=== PATIENT | female | born 1985 | race Caucasian/White ===

== ENCOUNTER → 2021-08-06 10:12 | Outpatient (CLI) | payer OTHER, SELFPAY ==
[2021-08-06 10:53] LABS: Add Manual Diff / Slide Review NO; Basophils Absolute Auto 0 /uL (0-100); Basophils Percent Auto 0.6 % (0-2); Eosinophils Absolute Auto 200 /uL (0-450); Eosinophils Percent Auto 2.6 % (2-4); Hematocrit 40.3 % (36-46); Hemoglobin 13.8 g/dL (12.0-16.0); Lymphocytes Absolute Auto 1900 /uL (1100-4500); Lymphocytes Percent Auto 30.3 % (25-40); Mean Corpuscular HGB Conc 34.2 % (30-36); Mean Corpuscular Hemoglobin 29.9 PG (26-34); Mean Corpuscular Volume 87.4 fL (80-100); Monocytes Absolute Auto 400 /uL (0-900); Neutrophils Absolute Auto 3800 /uL (1500-7000); Neutrophils Percent Auto 59.5 % (50-75); Platelet Count 261 X10^3/uL (150-400); Red Blood Cell Count 4.61 X10^6/uL (4.0-5.2); Red Cell Distribution Width 13.3 % (11.6-14.8); White Blood Cell Count 6.4 X10^3/uL (4.5-11.0)
[2021-08-06 11:07] LABS: Alanine Aminotransferase 14 IU/L (<35); Albumin 4.5 g/dL (3.5-5.0); Albumin Globulin Ratio 1.5 (1.0-2.8); Alkaline Phosphatase 85 U/L (38-126); Aspartate Aminotransferase 22 IU/L (14-36); BUN Creatinine Ratio 9.6 (6-22); Bilirubin Total 0.6 mg/dL (0.2-1.3); Blood Urea Nitrogen 7 mg/dL (7-17); Calcium 9.2 mg/dL (8.4-10.2); Carbon Dioxide 27 mmol/L (22-32); Chloride 104 mmol/L (98-107); Cholesterol 160 mg/dL (140-199); Estimated Glomerular Filt Rate > 60 mL/min (>60); Glucose 93 mg/dL (70-100); HDL Cholesterol 66 mg/dL (40-60); HEMOLYSIS < 15 (0-50); LDL Cholesterol Calculated 76 mg/dL (<100); Sodium 137 mmol/L (137-145); Total Protein 7.5 g/dL (6.3-8.2); Triglycerides 88 mg/dL (35-150)
[2021-08-06 11:18] LABS: HEMOLYSIS < 15 (0-50); Iron 95 ug/dL (37-170)
[2021-08-06 11:27] LABS: Vitamin D 25 Hydroxy (D3) 60.5 ng/mL (30.0-100.0)
[2021-08-06 11:30] LABS: Percent Iron Saturation 37 % (15-50); Total Iron Binding Capacity 256 ug/dL (265-497); Transferrin 209 mg/dL (206-381)
[2021-08-06 11:40] LABS: Ferritin 57 ng/mL (6-137)
[2021-08-06 11:48] LABS: TSH w/ Reflex to FT4 2.84 uIU/mL (0.47-4.68)
[2021-08-06 12:11] LABS: Folate 19.7 ng/mL (2.76-20.0); Vitamin B12 878 pg/mL (239-931)
== END ==
PROVIDERS: PCP Family Medicine; Referring Provider Family Medicine; Visit Provider Family Medicine
DX: F41.8 Other specified anxiety disorders (principal); Z90.3 Acquired absence of stomach [part of]
CPT/HCPCS: 36415; 80053; 80061; 82306; 82607; 82728; 82746; 83036; 83540; 83550; 84443; 85025

== ENCOUNTER → 2021-11-26 06:59 | Outpatient (CLI) | payer OTHER, SELFPAY ==
--- NOTE | 2021-11-26 07:00 | DI.US.S_ITS ---
PROCEDURE: US PELVIC COMPLETE INDICATIONS: RIGHT PELVIC PAIN TECHNIQUE: Real-time scanning was performed of the pelvic organs, with image documentation. Additional endovaginal scanning was necessary due to incomplete visualization of the adnexal and endometrial structures by transabdominal scanning. COMPARISON: None. FINDINGS: Uterus: Uterus is anteverted and normal in size at 8 x 6 x 4.5 cm. The uterus demonstrates an arcuate configuration. The myometrium is homogeneous. The endometrium measures 8 mm combined thickness. There is a 2 cm subserosal fibroid seen on the right anteriorly. Ovaries: The right ovary measures 2.1 x 3.1 x 1.5 cm, with a calculated ovarian volume of 7.5 cc. The left ovary measures 4.1 x 3.4 x 1.8 cm, with a calculated ovarian volume of 13.5 cc. Adjacent to the right ovary, there is a thick-walled cyst with mildly increased surrounding vascularity that measures 2.6 x 2.5 x 2.7 cm. Within the left ovary, there is a likely hemorrhagic cyst with peripheral vascularity that measures 2.2 x 2.3 x 1.2 cm. More than 12 follicles can be seen in each ovary. Other: No pathologic free abdominal or pelvic fluid. IMPRESSION: Within the right adnexal region, there is a cystic lesion with mild surrounding increased vascularity. Please correlate with status. A likely hemorrhagic cyst can be seen involving the left ovary. If it would be clinically appropriate, a followup pelvic ultrasound could be considered in 6 weeks to assure resolution/ improvement. There is a 2 cm subserosal fibroid seen on the right anteriorly. Arcuate uterus configuration noted. We strive to produce accurate, complete, and clear reports of imaging services. To assist us in improving patient care, this report was composed using standard report templates and voice recognition software. Therefore, it may contain abnormal punctuation, insertions and/or omissions. Occasional wrong-word or sound-alike substitutions may occur. Though we review the report and make efforts to correct it, we do recommend that the report be read carefully in proper context to recognize any text inaccuracies. Dictated by: Campbell Damico M.D. on 11/26/2021 at 11:51 Approved by: Campbell Damico M.D. on 11/26/2021 at 11:57
== END ==
PROVIDERS: PCP Family Medicine; Referring Provider Obstetrics & Gynecology; Visit Provider Obstetrics & Gynecology
DX: D25.2 Subserosal leiomyoma of uterus (principal); N83.202 Unspecified ovarian cyst, left side; R10.9 Unspecified abdominal pain; Q51.810 Arcuate uterus; N94.9 Unspecified condition associated with female genital organs and menstrual cycle
CPT/HCPCS: 76830; 76856

== ENCOUNTER → 2022-01-21 15:01 | Outpatient (CLI) | payer OTHER, SELFPAY ==
[2022-01-21 15:43] LABS: COVID19 -Nasal RAPID Negative (Negative)
== END ==
PROVIDERS: PCP Family Medicine; Visit Provider Obstetrics & Gynecology
DX: Z01.812 Encounter for preprocedural laboratory examination (principal); Z20.822 Contact with and (suspected) exposure to COVID-19
CPT/HCPCS: 87635

== ENCOUNTER 2022-01-24 08:15 | Day surgery (SDC) | payer OTHER, SELFPAY ==
[2022-01-20 15:25] VITALS: BMI 30.5
[2022-01-24] VITALS (12 sets, daily range): BP systolic 105–129; BP diastolic 58–85; PULSE 66–93; RESP 12–19; TEMP 36.3–36.9; O2SAT 97–100; BMI 26.5
--- NOTE | 2022-01-24 | PATH_ITS ---
[facility] Accession Number: [id number] . 01 Material submitted: . PART A: fallopian tube - RIGHT PARATUBAL CYST PART B: fallopian tube - LEFT PARATUBAL CYST PART C: small intestine - SMALL INTESTINE MASS . 01 Diagnosis: A. Right Paratubal Cyst, Biopsy: Endometriosis involving fragment of fallopian tube mucosa. No evidence of malignancy. . B. Left Paratubal Cyst, Biopsy: Endometriosis involving fragment of fallopian tube mucosa. No evidence of malignancy. . C. Small Intestine, Mass, Biopsy: Dense fibrous tissue with non-specific microcalcifications. No evidence of endometriosis or neoplasm. [facility] 01/27/2022 1738 Local . 01 Electronically signed: . Kelly Smith MD, Pathologist NPI- [id number] . 01 Gross description: . Part A: RIGHT PARATUBAL CYST: Received in formalin is 1 fragment of zhang soft tissue measuring 2.5 x 1.0 x 0.5 cm. Tissue is inked. Specimen is sectioned and submitted in its entirety in 2 cassettes. Part B: LEFT PARATUBAL CYST: Received in formalin is 1 fragment of zhang soft tissue measuring 0.8 x 0. 7 x 0.2 cm. Tissue is inked. Specimen is sectioned and submitted in its entirety in 1 cassette. Part C: SMALL INTESTINE MASS: Received in formalin is 1 fragment(s) of zhang, soft tissue measuring 1.0 x 0.7 x 0.1 cm which is inked, trisected and submitted entirely in 1 cassette(s) /CPE 01/25/2022 0914 Local . 01 Microscopic: . Immunohistochemical stains were performed in order to characterize cells of interest. The control stains showed appropriate reactivity. . Block A CD10: Positive in cells of interest. . Block C CD10: Negative PAX8: Negative . Interpretation. A. The combined morphologic appearance and expression of CD10 is consistent with endometriosis. . C. No morphologic or immunohistologic evidence of endometriosis. . * This test was developed and its performance characteristics determined by [employer]. It has not been cleared or approved by the U.S. Food and Drug Administration. The FDA has determined that such clearance or approval is not necessary. This test is used for clinical purposes. It should not be regarded as investigational or for research. . 01 Pathologist provided ICD-10: N80.209 . 01 CPT . 081496, 335426, 961094, B50051, V46833 Specimen Comment: A courtesy copy of this report has been sent to [phone] Performed at: 01 [facility] [address] [place] [address], [place], [place] [id number] MD Martínez Menjivar MD Phone: [phone]
[2022-01-24] MEDS: LACTATED RINGERS 1,000 ML 100 ML IV ×2 (09:04→13:14)
--- NOTE | 2022-01-24 09:52 | PM.HP.1 ---
History of Present Illness History of Present Illness Date Patient Seen: 01/24/22 Time Patient Seen: 09:52 Chief complaint: [facility] Narrative: Patient is a 36-year-old 0 with a right adnexal cyst, dysmenorrhea, possible endometriosis. She presents for a laparoscopic removal of the right ovarian cyst, chromotubation, possible lysis of adhesions, and possible fulguration of endometriosis. Patient History Medical History (Updated 01/07/22 @ 13:01 by Nereida Robledo MD) Depression Surgical History (Updated 01/20/22 @ 15:28 by Patti Castle RN) H/O gastric sleeve (10/2020) Family & Social History Social History: household members spouse Tobacco & Substance use: Smoking Status Never smoker alcohol intake current alcohol intake frequency a few times a week Substance Use Type marijuana Meds Home Medications and Allergies Home Medications Medication Instructions Recorded Confirmed Type hydroxyzine HCl 25 mg tablet 25 mg PO BID PRN anxiety #30 tabs 08/06/21 01/20/22 Rx tretinoin 0.025 % topical cream 1 applic topical BEDTIME 08/06/21 01/20/22 History triamcinolone acetonide 0.025 % 1 applic topical DAILY 08/06/21 01/20/22 History topical cream Allergies Allergy/AdvReac Type Severity Reaction Status Date / Time No Known Drug Allergies Allergy Verified 01/24/22 08:36 Exam Vital Signs (past 8 hours): - 01/24/22 08:38 Temperature 97.7 F Pulse Rate 66 Respiratory Rate 16 Blood Pressure 129/85 Pulse Oximetry 100 Oxygen Delivery Method Room Air Oxygen Delivery Method Room Air Narrative Exam Narrative: HEENT: No thyromegaly, no anterior cervical or supraclavicular lymphadenopathy. Lungs:Clear to auscultation bilaterally, no wheezes. Cardiovascular: Regular rate and rhythm, no murmurs, rubs, or gallops. Abdomen: Well-healed scars. No hepatosplenomegaly. No masses palpable. External genitalia: Normal Vagina: Normal Cervix: Normal Bimanual exam: 7 Week size uterus. Mobile. Extremities: No edema Assessment & Plan Assessment & Plan narrative: Assessment: 36-year-old 0 with a right ovarian cyst, dysmenorrhea, and possible adhesions Plan: Laparoscopic removal of right ovarian cyst, possible lysis of adhesions, chromotubation, and possible fulguration of endometriosis The risks, benefits, and alternatives to the procedure were explained to the patient. The risks including bleeding, infection, uterine perforation, injury to the bowel, bladder, or ureters. She understands these risks and agrees to proceed. A full par Q was held and consent form was signed. COVID-19 COVID-19 status: Negative Result date/Date tested (Pos, Neg/Pending): 01/21/22 Time Spent With Patient Time with patient: less than 30 minutes Critical Care time: I spent a total of [] minutes of critical care time on this patient's care today; this time is exclusive of procedural time.
--- NOTE | 2022-01-24 09:54 | PM.PREOP ---
Pre-operative Note COVID-19 COVID-19 status: Negative Result date/Date tested (Pos, Neg/Pending): 01/24/22 Criteria for continued procedure: Non-surgical alternatives not available or appropriate per current SOC Interval Note History & Physical reviewed/Exam performed by Physician: Yes Changes to H&P: No H&P completed within 30 days and has changed as indicated here:: 01/24/22
--- NOTE | 2022-01-24 10:44 | SUR.OPER ---
Lithotomy on padded OR bed, head on pillow, arms secured on padded arm boards at <90 degrees abductio. Legs secured in padded yellow fins stirrups.
--- NOTE | 2022-01-24 10:44 | SUR.OPER ---
Lithotomy on padded OR bed, head on pillow, arms padded with gel pads and tucked against body, fingers free and straight. Legs secured in padded yellow fins stirrups.
[2022-01-24] MEDS: METHYLENE BLUE 50 MG/10 ML VIAL INJ (10:52)
[2022-01-24] MEDS: BUPIVACAINE 0.5% (PF) 30 ML, EPINEPHrine 0.15 MG INJ (10:59)
[2022-01-24] MEDS: HYDROMORPHONE 2 MG INJ IV (11:58)
--- NOTE | 2022-01-24 12:02 | SUR.PHASEI ---
Report given to Thiago
[2022-01-24] MEDS: OXYCODONE IR 5 MG TABLET PO (12:15)
--- NOTE | 2022-01-24 12:18 | P.OP_ITS ---
Operative Date/Time/Diagnoses Date of procedure: 01/24/22 Time of procedure: 12:18 Pre-op diagnosis: Dysmenorrhea Right ovarian cyst Arcuate uterus Post-op diagnosis: same Procedure & Clinicians Procedure: Procedures Operation Date: 01/24/22 09:45 Actual Procedure Side Surgeon p Diagnostic Laparoscopy, removal of right adnexal cyst, removal left adnexal c yst, fulguration of endometriosis, biopsy small intestine mass, hysteroscopy Nereida Robledo MD Indications: Dysmenorrhea Right ovarian cyst Surgeon: Nereida Robledo Anesthesia Type: General and Local Operative Notes Findings: 7 week size arcuate uterus Normal liver and gallbladder Appendix previously removed ?White tissue? attached to the mesentery of the small bowel Bilateral paratubal cysts Endometriosis of the anterior cul-de-sac and left posterior cul-de-sac No septum in the uterus Bilateral fallopian tube ostia observed Closure Type: primary Specimen(s): other (Bilateral paratubal cysts, white tissue and attached to the small bowel mesentery) Estimated blood loss (mL): 10 Blood products transfused: none Procedure in detail: After informed consent was obtained, the patient was taken to the operating room where she was placed in the dorsal supine position. After adequate general endotracheal anesthesia was achieved, she was placed in the dorsal lithotomy position, and prepped and draped in the usual sterile fashion. A time-out was performed. A bivalve speculum was placed into the vagina and the anterior lip of the cervix was grasped with a single-tooth tenaculum. The cervical os was sequentially dilated until the Zumi uterine manipulator could pass easily into the endometrial cavity. Single-tooth tenaculum was removed from the anterior lip of the cervix. The bivalve speculum was removed the vagina. Attention was then turned to the abdomen where 6 cc of 0.5% Marcaine with epinephrine were injected in the umbilical fold. A 5 mm incision was made. The Veress needle was placed into the peritoneal cavity, and its placement confirmed by aspiration and drop test. The abdominal cavity was insufflated with 3.2 L of CO2. The Veress needle was removed, and a 5 mm trocar was placed without difficulty. Two other incisions were made 4 cm lateral to the midline at the level of the umbilicus after 6 cc of 0.5% Marcaine with epinephrine were injected and two 5 mm trocars were placed under direct visualization. The paratubal cyst on the ri ght side was grasped with an atraumatic grasper. Using the power seal, the attachment was cauterized and cut with care not to touch the tube. This was pulled through the left upper trocar. This was repeated on the paratubal cyst on the left ovary. That was pulled through the right trocar. The spoon cautery was then used to cauterize endometriotic lesions in the anterior and posterior cul-de-sacs. There were approximately 50 lesions. While looking at the appendix, there was a white mass coming from the mesentery. A small piece was excised and sent to pathology. Hemostasis was achieved. The pelvis was copiously irrigated with warm normal saline. The instruments were removed from the abdomen. The CO2 was allowed to escape. The trocars were removed. The incisions were repaired with 4-0 Monocryl in a subcuticular fashion. Steri- Strips and Allevyn dressings were placed. The Zumi uterine manipulator was removed from the uterus. Sponge, lap, and instrument counts were correct x2. The patient tolerated the procedure well, and was taken to PACU in stable condition. Complications: none Post-operative Condition: stable Disposition: PACU Plan for aftercare: Home after recovery
[2022-01-24] MEDS: SCOPOLAMINE 1 PATCH TOP (12:55)
--- NOTE | 2022-01-24 13:10 | SUR.PHASEII ---
c/o nausea - medicated with scopalamine patch VSS
--- NOTE | 2022-01-24 13:50 | SUR.PHASEII ---
Notified Rolanda Wilson CRNA of patient continued nausea after IVF and with more than 30min [address] [place] [address] and hx of car sickness and PONV.
[2022-01-24] MEDS: HALOPERIDOL 5 MG/ML VIAL 1 MG IV (14:34)
--- NOTE | 2022-01-24 14:36 | SUR.PHASEII ---
continuing to feel nausea - new order for haldol received. Awaiting ride.
== END 2022-01-24 14:55 | disposition home or self-care (01) ==
PROVIDERS: PCP Family Medicine; Referring Provider Obstetrics & Gynecology; Visit Provider Obstetrics & Gynecology
PROC: (CPT 58662; principal; 2022-01-24 09:45)
DX: N80.203 Endometriosis of bilateral fallopian tubes, unspecified depth (principal); N80.329 Endometriosis of the posterior cul-de-sac, unspecified depth; Q51.810 Arcuate uterus; N80.319 Endometriosis of the anterior cul-de-sac, unspecified depth
CPT/HCPCS: 58662; 81025; J0171; J1100; J1170; J1630; J1885; J2405; J2704; J3010; Q9968

== ENCOUNTER → 2022-02-15 08:34 | Outpatient (CLI) | payer OTHER, SELFPAY ==
[2022-02-15 09:05] LABS: Add Manual Diff / Slide Review NO; Basophils Absolute Auto 0 /uL (0-100); Basophils Percent Auto 0.3 % (0-2); Eosinophils Absolute Auto 100 /uL (0-450); Eosinophils Percent Auto 2.7 % (2-4); Hematocrit 40.4 % (36-46); Hemoglobin 13.7 g/dL (12.0-16.0); Lymphocytes Absolute Auto 1700 /uL (1100-4500); Lymphocytes Percent Auto 36.3 % (25-40); Mean Corpuscular Hemoglobin 30.1 PG (26-34); Mean Corpuscular Volume 88.7 fL (80-100); Monocytes Absolute Auto 400 /uL (0-900); Monocytes Percent Auto 8.3 % (3-14); Neutrophils Absolute Auto 2500 /uL (1500-7000); Neutrophils Percent Auto 52.4 % (50-75); Platelet Count 224 X10^3/uL (150-400); Red Blood Cell Count 4.55 X10^6/uL (4.0-5.2); Red Cell Distribution Width 12.8 % (11.6-14.8); White Blood Cell Count 4.7 X10^3/uL (4.5-11.0)
[2022-02-15 09:16] LABS: Hemoglobin A1C% w Est Avg Glu 4.8 % (4.0-6.0)
[2022-02-15 09:24] LABS: Iron 186 ug/dL (37-170)
[2022-02-15 09:26] LABS: Alanine Aminotransferase 14 IU/L (<35); Albumin 4.1 g/dL (3.5-5.0); Albumin Globulin Ratio 1.4 (1.0-2.8); Alkaline Phosphatase 54 U/L (38-126); Aspartate Aminotransferase 19 IU/L (14-36); BUN Creatinine Ratio 22.8 (6-22); Blood Urea Nitrogen 13 mg/dL (7-17); Calcium 8.6 mg/dL (8.4-10.2); Carbon Dioxide 25 mmol/L (22-32); Chloride 102 mmol/L (98-107); Cholesterol 163 mg/dL (140-199); Estimated Glomerular Filt Rate > 60 mL/min (>60); Globulin 2.9 g/dL (1.7-4.1); Glucose 90 mg/dL (70-100); HDL Cholesterol 74 mg/dL (40-60); HEMOLYSIS < 15 (0-50); LDL Cholesterol Calculated 74 mg/dL (<100); Potassium 3.8 mmol/L (3.4-5.1); Sodium 136 mmol/L (137-145); Triglycerides 75 mg/dL (35-150)
[2022-02-15 09:33] LABS: Total Iron Binding Capacity 250 ug/dL (265-497)
[2022-02-15 09:34] LABS: Percent Iron Saturation 74 % (15-50)
[2022-02-15 09:41] LABS: Vitamin D 25 Hydroxy (D3) 56.1 ng/mL (30.0-100.0)
[2022-02-15 09:55] LABS: Thyroid Stimulating Hormone 2.21 uIU/mL (0.47-4.68)
[2022-02-15 09:59] LABS: Ferritin 58 ng/mL (6-137)
[2022-02-15 10:30] LABS: Folate 14.3 ng/mL (2.76-20.0); Vitamin B12 618 pg/mL (239-931)
[2022-02-18 17:01] LABS: Vitamin B1 167.6 nmol/L (66.5-200.0)
== END ==
PROVIDERS: PCP Family Medicine; Referring Provider Surgery; Visit Provider Surgery
DX: E63.9 Nutritional deficiency, unspecified (principal); K90.9 Intestinal malabsorption, unspecified; Z98.84 Bariatric surgery status
CPT/HCPCS: 36415; 80053; 80061; 82306; 82607; 82728; 82746; 83036; 83540; 83550; 84425; 84443; 85025

== ENCOUNTER → 2023-03-03 08:38 | Outpatient (CLI) | payer OTHER, SELFPAY ==
[2023-03-03 10:06] LABS: Hemoglobin A1C% w Est Avg Glu 4.8 % (4.0-6.0)
[2023-03-03 10:18] LABS: Add Manual Diff / Slide Review NO; Basophils Absolute Auto 0 /uL (0-100); Basophils Percent Auto 0.6 % (0-2); Eosinophils Absolute Auto 200 /uL (0-450); Eosinophils Percent Auto 3.3 % (2-4); Hematocrit 40.6 % (36-46); Hemoglobin 13.9 g/dL (12.0-16.0); Lymphocytes Absolute Auto 1900 /uL (1100-4500); Lymphocytes Percent Auto 41.1 % (25-40); Mean Corpuscular HGB Conc 34.3 % (30-36); Mean Corpuscular Hemoglobin 29.8 PG (26-34); Mean Corpuscular Volume 86.9 fL (80-100); Monocytes Absolute Auto 300 /uL (0-900); Monocytes Percent Auto 6.8 % (3-14); Neutrophils Absolute Auto 2300 /uL (1500-7000); Neutrophils Percent Auto 48.2 % (50-75); Platelet Count 226 X10^3/uL (150-400); Red Blood Cell Count 4.67 X10^6/uL (4.0-5.2); Red Cell Distribution Width 12.8 % (11.6-14.8); White Blood Cell Count 4.7 X10^3/uL (4.5-11.0)
[2023-03-03 10:31] LABS: Iron 150 ug/dL (37-170)
[2023-03-03 10:36] LABS: Alanine Aminotransferase 13 IU/L (<35); Albumin 4.1 g/dL (3.5-5.0); Albumin Globulin Ratio 1.5 (1.0-2.8); Alkaline Phosphatase 43 U/L (38-126); Aspartate Aminotransferase 20 IU/L (14-36); BUN Creatinine Ratio 21.9 (6-22); Bilirubin Total 0.8 mg/dL (0.2-1.3); Blood Urea Nitrogen 14 mg/dL (7-17); Calcium 9.5 mg/dL (8.4-10.2); Carbon Dioxide 27 mmol/L (22-32); Chloride 102 mmol/L (98-107); Cholesterol 155 mg/dL (140-199); Estimated Glomerular Filt Rate > 60 mL/min (>60); Globulin 2.7 g/dL (1.7-4.1); Glucose 82 mg/dL (70-100); HDL Cholesterol 71 mg/dL (40-60); HEMOLYSIS < 15 (0-50); LDL Cholesterol Calculated 73 mg/dL (<100); Potassium 4.2 mmol/L (3.4-5.1); Sodium 135 mmol/L (137-145); Total Protein 6.8 g/dL (6.3-8.2); Triglycerides 55 mg/dL (35-150)
[2023-03-03 10:44] LABS: Percent Iron Saturation 55 % (15-50); Total Iron Binding Capacity 271 ug/dL (265-497)
[2023-03-03 10:50] LABS: Vitamin D 25 Hydroxy (D3) 55.2 ng/mL (30.0-100.0)
[2023-03-03 11:09] LABS: Thyroid Stimulating Hormone 2.09 uIU/mL (0.47-4.68)
[2023-03-03 11:13] LABS: Ferritin 44 ng/mL (6-137)
[2023-03-03 11:45] LABS: Folate 13.2 ng/mL (2.76-20.0); Vitamin B12 764 pg/mL (239-931)
[2023-03-07 11:27] LABS: Vitamin B1 91.8 nmol/L (66.5-200.0)
== END ==
LOC: LAB 08:40
PROVIDERS: PCP Family Medicine; Referring Provider Surgery; Visit Provider Surgery
DX: E63.9 Nutritional deficiency, unspecified (principal); K90.9 Intestinal malabsorption, unspecified; Z98.84 Bariatric surgery status
CPT/HCPCS: 36415; 80053; 80061; 82306; 82607; 82728; 82746; 83036; 83540; 83550; 84425; 84443; 85025

== ENCOUNTER → 2023-06-30 13:33 | Outpatient (CLI) | payer OTHER, SELFPAY ==
[2023-06-30 17:45] LABS: Glucose 85 mg/dL (70-100)
[2023-07-04 07:36] LABS: Insulin Level Total 2.2 uIU/mL (2.6-24.9)
== END ==
PROVIDERS: PCP Family Medicine; Referring Provider Obstetrics & Gynecology; Visit Provider Obstetrics & Gynecology
DX: E28.2 Polycystic ovarian syndrome (principal)
CPT/HCPCS: 36415; 82947; 83525

== ENCOUNTER → 2023-07-18 16:25 | Outpatient (CLI) | payer OTHER, SELFPAY ==
[2023-07-18 17:44] LABS: HCG Quantitative /Beta subunit 144.66 mIU/mL
== END ==
PROVIDERS: PCP Family Medicine; Referring Provider Obstetrics & Gynecology; Visit Provider Obstetrics & Gynecology
DX: N91.2 Amenorrhea, unspecified (principal)
CPT/HCPCS: 36415; 84702

== ENCOUNTER → 2023-07-20 16:38 | Outpatient (CLI) | payer OTHER, SELFPAY ==
[2023-07-20 18:17] LABS: HCG Quantitative /Beta subunit 319.09 mIU/mL
== END ==
PROVIDERS: PCP Family Medicine; Referring Provider Obstetrics & Gynecology; Visit Provider Obstetrics & Gynecology
DX: N91.2 Amenorrhea, unspecified (principal)
CPT/HCPCS: 36415; 84702

== ENCOUNTER → 2023-08-10 12:40 | Outpatient (CLI) | payer OTHER, SELFPAY ==
[2023-08-10 14:11] LABS: HCG Quantitative /Beta subunit 18488 mIU/mL
== END ==
PROVIDERS: PCP Family Medicine; Referring Provider Obstetrics & Gynecology; Visit Provider Obstetrics & Gynecology
DX: N91.2 Amenorrhea, unspecified (principal)
CPT/HCPCS: 36415; 84702

== ENCOUNTER → 2023-08-12 12:07 | Outpatient (CLI) | payer OTHER, SELFPAY ==
[2023-08-12 13:35] LABS: HCG Quantitative /Beta subunit 20648 mIU/mL
== END ==
PROVIDERS: PCP Family Medicine; Referring Provider Obstetrics & Gynecology; Visit Provider Obstetrics & Gynecology
DX: O20.9 Hemorrhage in early pregnancy, unspecified (principal)
CPT/HCPCS: 84702

== ENCOUNTER 2023-08-21 08:20 | Day surgery (SDC) | payer OTHER, SELFPAY ==
--- NOTE | 2023-08-21 | PATH_ITS ---
[facility] Accession Number: [id number] No. of containers..01 Tissue . 01 Material submitted: . product of conception - PRODUCTS OF CONCEPTION . 01 Diagnosis: PRODUCTS OF CONCEPTION: Products of conception identified. Outside consultation pending to rule out a molar gestation; results will be reported as an addendum. MRV 08/23/2023 1359 Local . 01 Electronically signed: . Nancy Brar MD, Pathologist NPI- [id number] . 01 Gross description: . Received in formalin with two identifiers and products of conception, are multiple zhang spongy to membranous soft tissue fragments admixed with mucohemorrhagic material aggregating to 4.7 x 4.7 x 1.2 cm. No tissue is identified. Application Architect Manager sections are submitted in cassettes A1-A2. ([id number]) /HUNTER 08/22/2023 1021 Local . 01 Pathologist provided ICD-10: O03.4 . 01 CPT . 023086 Specimen Comment: A courtesy copy of this report has been sent to [phone] Performed at: 01 [facility] [address], [place], [place] [id number] MD Martínez Menjivar MD Phone: [phone]
[2023-08-21 08:51] VITALS: BMI 26.9
--- NOTE | 2023-08-21 08:52 | PM.PREOP ---
Pre-operative Note Interval Note History & Physical reviewed/Exam performed by Physician: Yes Changes to H&P: No
--- NOTE | 2023-08-21 09:01 | PM.GYNHP.1 ---
History of Present Illness History of Present Illness Reason for admission: missed Narrative: Marcelle Willams is a 38 year old female who was being followed for threatened A/B and then had no heartbeat with no growth. Patient comes in for suction D&C for missed A/B [facility] Medical History (Updated 08/21/23 @ 09:10 by Cherie Khan MD) Infertility associated with anovulation Depression Surgical History (Updated 01/20/22 @ 15:28 by Patti Castle RN) H/O gastric sleeve (10/2020) Social History household members: spouse Smoking Status: Never smoker alcohol intake: current Meds Home Medications and Allergies Home Medications Medication Instructions Recorded Confirmed Type hydroxyzine pamoate 25 mg capsule 25 mg PO TID PRN anxiety #30 caps 04/26/23 08/21/23 Rx bupropion HCl 300 mg 24 hr tablet, 300 mg PO QAM #90 tabs 06/15/23 08/21/23 Rx extended release hydrocodone 5 mg-acetaminophen 325 1 tab PO Q4H PRN pain #20 tabs 08/18/23 08/18/23 Rx mg tablet Allergies Allergy/AdvReac Type Severity Reaction Status Date / Time No Known Drug Allergies Allergy Verified 08/21/23 08:50 Review of Systems Review of Systems Narrative: Patient has been having some mild brown spotting. No significant cramping. No fevers. No pain. Exam Narrative Exam Narrative: HEENT exam within normal limits. Lungs are clear to auscultation and percussion. No thyromegaly. Abdomen is soft, nontender. Pelvic exam performed 4 days ago, 6-7 week size uterus with no adnexal masses. Assessment & Plan Assessment and plan (1) Incomplete miscarriage: Status: Acute Assessment & Plan narrative: Incomplete miscarriage. Patient requests suction D&C. Consent form was signed. Risk of reaction to medication or anesthesia, infection, bleeding enough to require transfusion, perforation of the uterus which should require additional procedure to make sure there is no damage to internal structures such as the bowel, bladder, ureters. Possible retained products that may result in additional procedure. Possible scar tissue in the uterus that may affect future fertility. Consent form signed and questions answered. Patient has narcotic pain medicine already picked up. Advised to take ibuprofen and Tylenol for pain. Time-Based Coding :: [TOTAL MINUTES] spent with patient and on the chart (including review of chart, obtaining history, exam, reviewing outside data, placing orders, documenting exam and treatment plan, and counseling patient) on [DATE].
[2023-08-21 09:02] VITALS: BP 115/75; PULSE 75; RESP 18; TEMP 37.3; O2SAT 100
[2023-08-21] MEDS: LACTATED RINGERS 1,000 ML 42 ML IV (09:08)
--- NOTE | 2023-08-21 09:48 | SUR.OPER ---
Lithotomy on padded OR bed, head on pillow, arms secured on padded arm boards at <90 degrees abduction. Legs secured in padded yellow fins stirrups.
[2023-08-21 10:00] VITALS: BP 89/57; PULSE 68; RESP 11; TEMP 36.1; O2SAT 92
[2023-08-21 10:05] VITALS: BP 101/56; PULSE 59; RESP 12; O2SAT 96
--- NOTE | 2023-08-21 10:06 | PM.OP.1 ---
Operative Date/Time/Diagnoses Date of procedure: 08/21/23 Time of procedure: 10:06 Pre-op diagnosis: Incomplete miscarriage Post-op diagnosis: same Procedure & Clinicians Procedure: Suction D&C Same procedure as scheduled: Yes Indications: Incomplete miscarriage Surgeon: Cherie Khan Click Yes if Unassisted: Yes Anesthesia Type: General Operative Notes Findings: 6-7 week size uterus normal exam under anesthesia. Moderate amount of tissue removed. Closure Type: not applicable Specimen(s): other (Uterine contents, products of conception) Estimated Blood Loss (mL): 100 Blood products transfused: none Procedure in detail: Patient was brought to the operating room where she underwent general anesthesia. She was placed in a dorsal lithotomy position in low [facility]. She was prepped and draped in the usual sterile fashion. A check system was reviewed with the staff in the room prior to beginning the case. No antibiotics were indicated. An in and out catheter was performed with less than 50 cc of urine returned. The anterior lip of the cervix was grasped with a single-tooth tenaculum and the cervix was dilated to a #8 Hegar dilator. The suction curette was placed into the uterus and a moderate amount of tissue removed. Sharp curette was performed followed by repeat suction. Patient tolerated the procedure well. She went to recovery room in stable condition. Estimated blood loss 100 cc. Complications: none Post-operative Condition: stable Disposition: same day surgery Plan for aftercare: Home when awake and stable
[2023-08-21 10:10] VITALS: BP 94/61; PULSE 55; RESP 12; O2SAT 98
[2023-08-21 10:15] VITALS: BP 104/63; PULSE 69; RESP 15; O2SAT 98
[2023-08-21 10:20] VITALS: BP 97/67; PULSE 58; RESP 12; TEMP 36.2; O2SAT 99
[2023-08-21] MEDS: OXYCODONE IR 5 MG TABLET PO (10:46)
== END 2023-08-21 11:20 | disposition home or self-care (01) ==
PROVIDERS: PCP Family Medicine; Referring Provider Specialist; Visit Provider Specialist
PROC: (CPT 58120; principal; 2023-08-21 09:45)
DX: O02.1 Missed abortion (principal); Z3A.01 Less than 8 weeks gestation of pregnancy
CPT/HCPCS: 59820; J1100; J1885; J2250; J2405; J3010

== ENCOUNTER → 2023-09-25 16:01 | Outpatient (CLI) | payer OTHER, SELFPAY ==
[2023-09-25 17:09] LABS: HCG Quantitative /Beta subunit 74.23 mIU/mL
== END ==
PROVIDERS: PCP Family Medicine; Referring Provider Obstetrics & Gynecology; Visit Provider Obstetrics & Gynecology
DX: Z34.90 Encounter for supervision of normal pregnancy, unspecified, unspecified trimester (principal)
CPT/HCPCS: 36415; 84702

== ENCOUNTER → 2023-09-27 16:09 | Outpatient (CLI) | payer OTHER, SELFPAY ==
[2023-09-27 17:28] LABS: HCG Quantitative /Beta subunit 234.35 mIU/mL
== END ==
PROVIDERS: PCP Family Medicine; Referring Provider Obstetrics & Gynecology; Visit Provider Obstetrics & Gynecology
DX: Z34.90 Encounter for supervision of normal pregnancy, unspecified, unspecified trimester (principal)
CPT/HCPCS: 36415; 84702

== ENCOUNTER → 2023-10-04 15:59 | Outpatient (CLI) | payer OTHER, SELFPAY ==
[2023-10-04 19:29] LABS: HCG Quantitative /Beta subunit 7848.9 mIU/mL
== END ==
PROVIDERS: PCP Family Medicine; Referring Provider Obstetrics & Gynecology; Visit Provider Obstetrics & Gynecology
DX: O26.859 Spotting complicating pregnancy, unspecified trimester (principal)
CPT/HCPCS: 36415; 84702

== ENCOUNTER → 2023-10-06 11:44 | Outpatient (CLI) | payer OTHER, SELFPAY ==
[2023-10-06 13:29] LABS: HCG Quantitative /Beta subunit 14557 mIU/mL
== END ==
PROVIDERS: PCP Family Medicine; Referring Provider Obstetrics & Gynecology; Visit Provider Obstetrics & Gynecology
DX: Z34.90 Encounter for supervision of normal pregnancy, unspecified, unspecified trimester (principal)
CPT/HCPCS: 36415; 84702

== ENCOUNTER → 2023-10-27 16:04 | Outpatient (CLI) | payer OTHER, SELFPAY ==
[2023-10-27 16:40] LABS: Add Manual Diff / Slide Review NO; Basophils Absolute Auto 0 /uL (0-100); Basophils Percent Auto 0.5 % (0-2); Eosinophils Absolute Auto 100 /uL (0-450); Eosinophils Percent Auto 2.3 % (2-4); Hematocrit 38.3 % (36-46); Hemoglobin 13.2 g/dL (12.0-16.0); Lymphocytes Absolute Auto 2000 /uL (1100-4500); Lymphocytes Percent Auto 31.7 % (25-40); Mean Corpuscular HGB Conc 34.5 % (30-36); Mean Corpuscular Hemoglobin 30.5 PG (26-34); Mean Corpuscular Volume 88.4 fL (80-100); Monocytes Absolute Auto 400 /uL (0-900); Neutrophils Absolute Auto 3600 /uL (1500-7000); Neutrophils Percent Auto 58.5 % (50-75); Platelet Count 268 X10^3/uL (150-400); Red Blood Cell Count 4.33 X10^6/uL (4.0-5.2); Red Cell Distribution Width 12.6 % (11.6-14.8); White Blood Cell Count 6.2 X10^3/uL (4.5-11.0)
[2023-10-27 18:29] LABS: HIV 1 & 2 Ab/Ag 4th Gen Combo NEGATIVE (NEGATIVE); Hep C Virus Ab w/Reflex Quant NEGATIVE s/c (NEGATIVE); Hepatitis B Surface Antigen NEGATIVE s/c (NEGATIVE); Rubella Antibody IgG 84.8 IU/mL (>15)
[2023-10-29 11:08] LABS: Varicella IgG Antibody 768 index (Immune >165)
== END ==
PROVIDERS: PCP Family Medicine; Referring Provider Obstetrics & Gynecology; Visit Provider Obstetrics & Gynecology
DX: O09.519 Supervision of elderly primigravida, unspecified trimester (principal)
CPT/HCPCS: 36415; 80055; 86787; 86803; 86850; 86900; 86901; 87086; 87389

== ENCOUNTER → 2023-11-13 16:57 | Outpatient (CLI) | payer OTHER, SELFPAY ==
[2023-11-13 18:03] LABS: Natera Collection Specimen Collected
== END ==
PROVIDERS: PCP Family Medicine; Referring Provider Obstetrics & Gynecology; Visit Provider Obstetrics & Gynecology
DX: Z3A.10 10 weeks gestation of pregnancy (principal); Z34.81 Encounter for supervision of other normal pregnancy, first trimester
CPT/HCPCS: 36415

== ENCOUNTER → 2024-01-10 13:50 | Outpatient (CLI) | payer OTHER, SELFPAY ==
--- NOTE | 2024-01-10 13:51 | DI.US.S_ITS ---
PROCEDURE: US OB >= 14 WEEKS FETUS INDICATIONS: 20 Week Anatomy Scan OUTSIDE/PRIOR DATING DATA: Last menstrual period (LMP): Unknown. LMP-based estimated date of delivery (ELAYNE): Unknown. First dating scan (date and location): 10/30/2023. Estimated date of delivery (ELAYNE) from first dating scan: 06/05/2024. T TECHNIQUE: Real-time scanning was performed of the fetus, with image documentation and biometric measurements. Endovaginal scanning: Not performed COMPARISON: [facility], , OB <= 14 WEEKS FETUS, 10/30/2023, 16:22. FINDINGS: General: A single living intrauterine gestation is present. Presentation: Vertex. Placenta: Placental position is posterior , without previa. Amniotic fluid index: 10.6 cm, normal range is 5-24 cm. Single deepest vertical pocket is 3.0 cm. heart rate: 150 beats per minute. Maternal cervical canal: 4.8 cm long. Normal lower limit is 2.5 cm. biometrics: Biparietal diameter: 4.2 cm, 18 weeks 5 days Head circumference: 15.1 cm, 18 weeks 1 day Abdominal circumference: 13.1 cm, 18 weeks 4 days Femur length: 2.8 cm, 18 weeks 5 days Clinically estimated gestational age: 19 weeks 0 days Composite gestational age from present scan: 18 weeks 4 days Estimated weight and percentile: 247 g, 23% Anatomic survey: Neuro: Ventricles are non-dilated at less than 10 mm. Cisterna magna is normal at 3-11 mm. Cerebellum is normal in size and morphology. Nuchal skin fold: Normal at less than 6 mm between 14-21 weeks gestational age. Face: Nose and lips, facial profile are normal. Spine: No evidence for spina bifida. Heart: 4-chambered heart is present, with normal ventricular outflow tracts. Diaphragm: Diaphragm is intact. Stomach: Left-sided stomach is present. Kidneys: No hydronephrosis. Normal is less than 5 mm in 2nd trimester, less than 7 mm in 3rd trimester. Cord: 3-vessel cord has orthotopic insertion. Bladder: Normal in size. Extremities: All 4 extremities identified. Anterior uterine fibroid measuring 3.2 x 2.4 x 2.4 cm. IMPRESSION: 1. Single live intrauterine consistent with 18 weeks and 4 days. 2. Normal anatomic survey. We strive to produce accurate, complete, and clear reports of imaging services. To assist us in improving patient care, this report was composed using standard report templates and voice recognition software. Therefore, it may contain abnormal punctuation, insertions and/or omissions. Occasional wrong-word or sound-alike substitutions may occur. Though we review the report and make efforts to correct it, we do recommend that the report be read carefully in proper context to recognize any text inaccuracies. Dictated by: Robin Mendoza M.D. on 01/12/2024 at 10:48 Approved by: Robin Mendoza M.D. on 01/12/2024 at 11:03
== END ==
PROVIDERS: PCP Family Medicine; Referring Provider Specialist; Visit Provider Specialist
DX: Z34.82 Encounter for supervision of other normal pregnancy, second trimester (principal); Z3A.18 18 weeks gestation of pregnancy
CPT/HCPCS: 36415; 76811; 82105

== ENCOUNTER → 2024-01-10 16:36 | Outpatient (CLI) | payer OTHER, SELFPAY | PROVIDERS: PCP Family Medicine; Referring Provider Obstetrics & Gynecology; Visit Provider Obstetrics & Gynecology | DX: Z3A.19 19 weeks gestation of pregnancy (principal); Z34.82 Encounter for supervision of other normal pregnancy, second trimester | CPT/HCPCS: 36415; 82105 ==

== ENCOUNTER → 2024-03-01 15:24 | Outpatient (CLI) | payer OTHER, SELFPAY ==
[2024-03-01 18:06] LABS: Hematocrit 32.9 % (36-46); Hemoglobin 11.5 g/dL (12.0-16.0)
[2024-03-01 18:51] LABS: GTT (PREG) 1 Hour PP 50gm Dose 159 mg/dL (76-139)
== END ==
PROVIDERS: PCP Family Medicine; Referring Provider Obstetrics & Gynecology; Visit Provider Obstetrics & Gynecology
DX: Z34.82 Encounter for supervision of other normal pregnancy, second trimester (principal); Z3A.26 26 weeks gestation of pregnancy
CPT/HCPCS: 36415; 82950; 85014; 85018

== ENCOUNTER → 2024-03-06 08:15 | Outpatient (CLI) | payer OTHER, SELFPAY ==
[2024-03-06 09:43] LABS: Glucose Fasting Gestational 73 mg/dL (76-95)
[2024-03-06 10:23] LABS: Glucose 1 Hour Gest 171 mg/dL (76-180)
[2024-03-06 12:08] LABS: Glucose Tol Interp,Gestational INTERPRETATION
[2024-03-06 12:13] LABS: Glucose 3 Hour Gest 47 mg/dL (76-140)
[2024-03-06 12:16] LABS: Glucose 2 Hour Gest 65 mg/dL (76-155)
== END ==
PROVIDERS: PCP Family Medicine; Referring Provider Specialist; Visit Provider Specialist
DX: O99.810 Abnormal glucose complicating pregnancy (principal)
CPT/HCPCS: 36415; 82951; 82952

== ENCOUNTER 2024-05-10 16:03 | Outpatient (CLI) | payer OTHER, SELFPAY ==
--- NOTE | 2024-05-10 16:46 | PM.OBTRLD ---
Visit Information Visit Information Date of evaluation: 05/10/24 Primary OB Provider: Nereida Robledo On-call OB Provider: Cherie Khan Reason for Evaluation: Yes non-stress test non-stress test reason: other (Advanced maternal age) Vital Signs Vital Signs: Blood pressure 114/72, pulse of 89 [facility] Medical History (Updated 05/10/24 @ 16:47 by Cherie Khan MD) Infertility associated with anovulation Neurocardiogenic pre-syncope Surgical History (Updated 10/23/23 @ 15:51 by Donita Ocampo, RN) H/O gastric sleeve (10/2020) Family History (Updated 10/23/23 @ 15:57 by Donita Ocampo RN) Father Congestive heart failure Diabetes mellitus Alcohol addiction Hypertension Mother Anxiety Diverticulitis Grandmother ALS (amyotrophic lateral sclerosis) Grandfather Brain aneurysm Grandfather Bladder cancer Grandmother Hyperlipidemia Heart attack Social History marital status: details: : Stan number of children: 0 household members: spouse lives independently: Yes caregiver/support person: No housing: house pets and animals: Yes (dogs, and cats ) education level: college (studied [employer]) 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[employer]) current occupational exposures/hazards: No aneudy/jain: Religion special aneudy needs: No travel history: recent ([place]asp[place]) sexual history: seatbelt use: always helmet use: Yes water heater temp set < 120 deg: Yes working smoke detector in home: Yes fire extinguisher in home: No carbon monox detector in home: Yes firearms in home: No do you feel safe at home: Yes Smoking Status: Never smoker alcohol intake: current substance use type: marijuana (former use of gummies for relaxation) during the past year weight has: remained stable well-balanced diet: about half the time daily servings fruits/ve-4 caffeine: Yes (1 matcha tea a day ) eating out: 1-3 times/week Type(s) of exercise: walking frequency: 1-2 times per week duration: 15-30 minutes/day Evaluation Evaluation Variability: Moderate (11-25) monitor accelerations: Present Monitor Decelerations: Absent Category of Tracing: Reactive Status: Category l Diagnosis, Plan/Disposition Final Diagnosis (1) , high-risk, maternal age 35+ primigravida: Status: Acute (2) 36 weeks gestation of : Status: Acute Plan/Disposition Plan: Reactive nonstress test. Continue weekly nonstress tests and office visits. OB Disposition: home
== END 2024-05-10 16:48 | disposition home or self-care (01) ==
LOC: OB 05-13 09:16
PROVIDERS: PCP Family Medicine; Referring Provider Specialist; Visit Provider Specialist
DX: O09.513 Supervision of elderly primigravida, third trimester (principal); Z3A.36 36 weeks gestation of pregnancy
CPT/HCPCS: 59025; G0378; G0379

== ENCOUNTER → 2024-05-17 15:15 | Outpatient (CLI) | payer OTHER, SELFPAY ==
[2024-05-18 11:28] LABS: Strep Grp B PCR NEG for Grp B Strep
== END ==
PROVIDERS: PCP Family Medicine; Visit Provider Specialist
DX: Z34.83 Encounter for supervision of other normal pregnancy, third trimester (principal); Z3A.37 37 weeks gestation of pregnancy
CPT/HCPCS: 87653

== ENCOUNTER 2024-05-17 15:26 | Outpatient (CLI) | payer OTHER, SELFPAY ==
--- NOTE | 2024-05-17 15:50 | P.TNLD_ITS ---
Visit Information Visit Information Date of evaluation: 05/17/24 Primary OB Provider: Cherie Khan Reason for Evaluation: Yes non-stress test non-stress test reason: other (Advanced maternal age) [facility] Medical History (Updated 05/17/24 @ 15:19 by Cherie Khan MD) Infertility associated with anovulation Neurocardiogenic pre-syncope Surgical History (Updated 10/23/23 @ 15:51 by Donita Ocampo, RN) H/O gastric sleeve (10/2020) Family History (Updated 10/23/23 @ 15:57 by Donita Ocampo, RN) Father Congestive heart failure Diabetes mellitus Alcohol addiction Hypertension Mother Anxiety Diverticulitis Grandmother ALS (amyotrophic lateral sclerosis) Grandfather Brain aneurysm Grandfather Bladder cancer Grandmother Hyperlipidemia Heart attack Social History marital status: details: : Stan number of children: 0 household members: spouse lives independently: Yes caregiver/support person: No housing: house pets and animals: Yes (dogs, and cats ) education level: college (studied [employer]) 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[employer]) current occupational exposures/hazards: No aneudy/taoism: Yazidi special aneudy needs: No travel history: recent (Jaspreet) sexual history: seatbelt use: always helmet use: Yes water heater temp set < 120 deg: Yes working smoke detector in home: Yes fire extinguisher in home: No carbon monox detector in home: Yes firearms in home: No do you feel safe at home: Yes alcohol intake: current substance use type: marijuana (former use of gummies for relaxation) during the past year weight has: remained stable well-balanced diet: about half the time daily servings fruits/ve-4 caffeine: Yes (1 matcha tea a day ) eating out: 1-3 times/week Type(s) of exercise: walking frequency: 1-2 times per week duration: 15-30 minutes/day Evaluation Evaluation Baseline heart rate: 140 Variability: Moderate (11-25) monitor accelerations: Present Monitor Decelerations: Absent Category of Tracing: Reactive Status: Category l Diagnosis, Plan/Disposition Final Diagnosis (1) 37 weeks gestation of : Status: Acute (2) , high-risk, maternal age 35+ primigravida: Status: Acute Plan/Disposition Plan: Reactive nonstress test OB Disposition: home
== END 2024-05-17 16:04 | disposition home or self-care (01) ==
LOC: LABOR 15:42 → OB 05-20 07:57
PROVIDERS: PCP Family Medicine; Referring Provider Specialist; Visit Provider Specialist
DX: O09.513 Supervision of elderly primigravida, third trimester (principal); Z3A.37 37 weeks gestation of pregnancy
CPT/HCPCS: 59025; 87653; G0378; G0379

== ENCOUNTER 2024-05-24 14:57 | Observation (INO) | payer OTHER, SELFPAY ==
--- NOTE | 2024-05-24 15:40 | P.TNLD_ITS ---
Visit Information Visit Information Date of evaluation: 05/24/24 Primary OB Provider: Cherie Khan Reason for Evaluation: Yes non-stress test non-stress test reason: other (Advanced maternal age) [facility] Medical History (Updated 05/24/24 @ 15:41 by Cherie Khan MD) Infertility associated with anovulation Neurocardiogenic pre-syncope Surgical History (Updated 10/23/23 @ 15:51 by Donita Ocampo, RN) H/O gastric sleeve (10/2020) Family History (Updated 10/23/23 @ 15:57 by Donita Ocampo, RN) Father Congestive heart failure Diabetes mellitus Alcohol addiction Hypertension Mother Anxiety Diverticulitis Grandmother ALS (amyotrophic lateral sclerosis) Grandfather Brain aneurysm Grandfather Bladder cancer Grandmother Hyperlipidemia Heart attack Social History marital status: details: : Stan number of children: 0 household members: spouse lives independently: Yes caregiver/support person: No housing: house pets and animals: Yes (dogs, and cats ) education level: college (studied [employer]) 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[employer]) current occupational exposures/hazards: No aneudy/alevism: Tenriism special aneudy needs: No travel history: recent (Jaspreet) sexual history: seatbelt use: always helmet use: Yes water heater temp set < 120 deg: Yes working smoke detector in home: Yes fire extinguisher in home: No carbon monox detector in home: Yes firearms in home: No do you feel safe at home: Yes alcohol intake: current substance use type: marijuana (former use of gummies for relaxation) during the past year weight has: remained stable well-balanced diet: about half the time daily servings fruits/ve-4 caffeine: Yes (1 matcha tea a day ) eating out: 1-3 times/week Type(s) of exercise: walking frequency: 1-2 times per week duration: 15-30 minutes/day Evaluation Evaluation Baseline heart rate: 135 Variability: Moderate (11-25) monitor accelerations: Present Monitor Decelerations: Absent Contraction Frequency (minutes): 10 Uterine Contraction Intensity: Mild Category of Tracing: Reactive Status: Category l Diagnosis, Plan/Disposition Final Diagnosis (1) , high-risk, maternal age 35+ primigravida: Status: Acute (2) 38 weeks gestation of : Status: Acute Plan/Disposition Plan: Reassuring nonstress test done for advanced maternal age at 38 weeks. Patient has clinic appointment next. OB Disposition: home
== END 2024-05-24 15:40 | disposition home or self-care (01) ==
LOC: LABOR 14:58
PROVIDERS: Admitting Provider Obstetrics & Gynecology; PCP Family Medicine; Referring Provider Obstetrics & Gynecology; Visit Provider Obstetrics & Gynecology
DX: O09.513 Supervision of elderly primigravida, third trimester (principal); Z3A.38 38 weeks gestation of pregnancy
CPT/HCPCS: 59025; G0378; G0379

== ENCOUNTER 2024-06-02 17:30 | Inpatient (IN) | payer OTHER, SELFPAY ==
[2024-06-02 18:29] LABS: Add Manual Diff / Slide Review NO; Basophils Absolute Auto 0 /uL (0-100); Basophils Percent Auto 0.3 % (0-2); Eosinophils Absolute Auto 100 /uL (0-450); Eosinophils Percent Auto 1.5 % (2-4); Hematocrit 36.2 % (36-46); Hemoglobin 12.6 g/dL (12.0-16.0); Lymphocytes Absolute Auto 1900 /uL (1100-4500); Lymphocytes Percent Auto 24.6 % (25-40); Mean Corpuscular HGB Conc 34.9 % (30-36); Mean Corpuscular Hemoglobin 31.7 PG (26-34); Mean Corpuscular Volume 90.6 fL (80-100); Monocytes Absolute Auto 700 /uL (0-900); Monocytes Percent Auto 8.4 % (3-14); Neutrophils Absolute Auto 5000 /uL (1500-7000); Neutrophils Percent Auto 65.2 % (50-75); Platelet Count 190 X10^3/uL (150-400); Red Blood Cell Count 3.99 X10^6/uL (4.0-5.2); Red Cell Distribution Width 13.8 % (11.6-14.8); White Blood Cell Count 7.7 X10^3/uL (4.5-11.0)
[2024-06-02 19:43] VITALS: BP 116/81
[2024-06-02] MEDS: miSOPROStoL 25 MCG TABLET 50 MCG PO ×2 (19:48→23:59)
[2024-06-03] MEDS: miSOPROStoL 25 MCG TABLET 50 MCG PO (04:21)
--- NOTE | 2024-06-03 07:44 | P.HPOB_ITS ---
OB HPI Date/Time Date of admission: 06/02/24 Date Patient Seen: 06/03/24 Time Patient Seen: 07:45 History of Present Condition Chief complaint: induction of labor ELAYNE Calculator 2 Estimated Delivery Date Method Current WG Current Estimate 06/05/24 Ultrasound #1 39w 5d Other Estimates 06/04/24 Ultrasound #2 39w 6d : 2 Para: 0 care: good care, initiated at week # (7), number of visits (12) and pounds weight gain (35) Dating criteria OB: LMP confirmed by 1st trimester US Ultrasounds: normal mid trimester US Obstetrical complications: none Medical complications OB: none Indications Indication for induction OB: other (Advanced maternal age) Preadmission Labs Last OB Lab Results: 2 Blood Type A Positive 06/02/24 18:00 Antibody Screen Negative 06/02/24 18:00 Hct 36.2 % (36-46) 06/02/24 18:00 Hgb 12.6 g/dL (12.0-16.0) 06/02/24 18:00 Hep Bs Antigen Negative s/c (NEGATIVE) 10/27/23 16:15 Hepatitis C Antibody Negative s/c (NEGATIVE) 10/27/23 16:15 Rubella Antibody 84.8 IU/mL (>15) 10/27/23 16:15 VZV IgG Antibody 768 index (Immune >165) 10/27/23 16:15 Glucose 1 Hr 50 gm 159 mg/dL (76-139) H 03/01/24 15:43 Hemoglobin A1c 4.8 % (4.0-6.0) 03/03/23 08:51 Group B Strep (PCR) Neg for grp b strep 05/17/24 15:57 -: Chlamydia screen: negative and Gonorrhea screen: negative Genetic Screens: Cell-free DNA: Normal and Alpha-fetoprotein: Normal Prior (ies) Past Pregnancies Del. Date GA/Weeks Labor Lgth Wt Sex Route Outcome Anesthesia Place Delv Breastfeed Preg Comp Name 08/21/23 8 spontaneous Delivery Date: 08/21/23 Last Updated by: Donita Ocampo RN incomplete AB, Had D/C on 08/20 Hx # Term Pregnancies: 0 Hx # Pregnancies: 0 Number of Living Children: 0 Multiple births: 0 Spontaneous abortions: 1 Ectopic pregnancies: 0 Elective abortions: 0 Evaluation Evaluation Baseline heart rate: 145 Variability: Moderate (11-25) monitor accelerations: Present Monitor Decelerations: Absent Contraction Frequency (minutes): 2 Uterine Contraction Intensity: Mild Status: Category l Dilation (cm): 1 Effacement (%): 10 station: -2 Position of cervix: posterior Consistency: medium [facility] Medical History (Updated 05/31/24 @ 16:33 by Cherie Khan MD) H/O infertility Infertility associated with anovulation Neurocardiogenic pre-syncope Surgical History (Updated 10/23/23 @ 15:51 by Donita Ocampo RN) H/O gastric sleeve (10/2020) Family History (Updated 10/23/23 @ 15:57 by Donita Ocampo RN) Father Congestive heart failure Diabetes mellitus Alcohol addiction Hypertension Mother Anxiety Diverticulitis Grandmother ALS (amyotrophic lateral sclerosis) Grandfather Brain aneurysm Grandfather Bladder cancer Grandmother Hyperlipidemia Heart attack Social History marital status: details: : Stan number of children: 0 household members: spouse lives independently: Yes caregiver/support person: No housing: house pets and animals: Yes (dogs, and cats ) education level: college (studied [employer]) 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[employer]) current occupational exposures/hazards: No aneudy/mandaen: Yarsanism special aneudy needs: No travel history: recent (Jaspreet) sexual history: seatbelt use: always helmet use: Yes water heater temp set < 120 deg: Yes working smoke detector in home: Yes fire extinguisher in home: No carbon monox detector in home: Yes firearms in home: No do you feel safe at home: Yes Smoking Status: Never smoker alcohol intake: current substance use type: marijuana (former use of gummies for relaxation) during the past year weight has: remained stable well-balanced diet: about half the time daily servings fruits/ve-4 caffeine: Yes (1 matcha tea a day ) eating out: 1-3 times/week Type(s) of exercise: walking frequency: 1-2 times per week duration: 15-30 minutes/day Meds Home Medications and Allergies Home Medications Medication Instructions Recorded Confirmed Type [facility] Bariatric PNV PO 10/23/23 05/31/24 History ascorbate calcium (vitamin C) 500 500 mg PO DAILY 10/23/23 05/31/24 History mg tablet calcium carbonate (Calcium 500) 500 mg PO DAILY 10/23/23 05/31/24 History docosahexaenoic acid 200 mg mg PO 10/23/23 05/31/24 History capsule ( DHA) fenofibric acid (choline) 45 mg 45 mg PO DAILY 10/23/23 05/31/24 History capsule,delayed release vitamin B complex 1 cap PO DAILY 10/23/23 05/31/24 History pantoprazole 40 mg tablet,delayed 40 mg PO DAILY #90 tabs 02/12/24 06/02/24 Rx release bupropion HCl 300 mg 24 hr tablet, 300 mg PO QAM Depression and 05/09/24 06/02/24 Rx extended release anxiety #90 tabs Allergies Allergy/AdvReac Type Severity Reaction Status Date / Time No Known Drug Allergies Allergy Verified 06/02/24 20:03 Review of Systems Review of Systems Narrative: Good movement, no leakage of fluid, some spotting after cervical check in the office 2 days ago. No headaches, scotomata, epigastric pain. OB Exam Vital signs Blood Pressure: 117/75 Pulse Rate: 88 Temperature: 97.3 F Narrative Exam Narrative: HEENT exam within normal limits. Lungs are clear to auscultation percussion. Heart is regular rate and rhythm no S3-S4 murmurs. No thyromegaly. Abdomen is gravid. Fetus is vertex. Extremities with trace edema and nontender. Objective Labs 06/02/24 18:00 Labs: Laboratory Results - last 24 hr 06/02/24 18:00 WBC 7.7 RBC 3.99 L Hgb 12.6 Hct 36.2 MCV 90.6 MCH 31.7 MCHC 34.9 RDW 13.8 Plt Count 190 Neut % (Auto) 65.2 Lymph % (Auto) 24.6 L [place] % (Auto) 8.4 Eos % (Auto) 1.5 L Baso % (Auto) 0.3 Neut # (Auto) 5000 Lymph # (Auto) 1900 [place] # (Auto) 700 Eos # (Auto) 100 Baso # (Auto) 0 Blood Type A Positive Antibody Screen Negative Assessment and Plan Assessment and Plan Assessment and Plan narrative: 39-,5/7 weeks gestation here for induction for advanced maternal age. Patient received Cytotec overnight. A Abrams bulb was placed this morning for induction. AROM or Pitocin when Abrasm bulb is expelled. Time-Based Coding :: [TOTAL MINUTES] spent with patient and on the chart (including review of chart, obtaining history, exam, reviewing outside data, placing orders, documenting exam and treatment plan, and counseling patient) on [DATE].
[2024-06-03 07:52] VITALS: BP 117/75; PULSE 88; TEMP 36.3
[2024-06-03] MEDS: LACTATED RINGERS 1,000 ML 100 ML IV (08:30)
--- NOTE | 2024-06-03 09:49 | PM.OBPNLAB ---
Date/Time Date Patient Seen: 06/03/24 Time Patient Seen: 09:49 Pain Control Pain control: tolerating well (3 to 05/23) Pelvic Exam Effacement (%): 10 station: -2 Amniotic membrane status: Intact Comments: Abrams bulb in the vagina, removed, vaginal exam not performed. Assume 4-5 cm dilated Contractions Contractions on admission: regular Monitor mode: External Contraction frequency (min): 3 Contraction duration (min): 1 Contraction intensity: Moderate Status status: Category l Heart Rate Baseline: 140 Monitor Accelerations: Present Monitor Decelerations: Absent Monitor Variability: Moderate Assessment and Plan Assessment: induction ongoing Comments: Will check the patient's cervix in about an hour and make a decision of AROM verses Pitocin if not in active labor
--- NOTE | 2024-06-03 11:11 | PM.OBPNLAB ---
Date/Time Date Patient Seen: 06/03/24 Time Patient Seen: 11:11 Pain Control Pain control: tolerating well Pelvic Exam Dilation (cm): 4 Effacement (%): 50 station: -1 Amniotic membrane status: Intact Contractions Monitor mode: External Contraction frequency (min): 3 Contraction pattern: Regular Contraction intensity: Moderate Status status: Category l Heart Rate Baseline: 150 Monitor Accelerations: Present Monitor Decelerations: Absent Monitor Variability: Moderate Assessment and Plan Assessment: induction ongoing Plan: begin patient augmentation
[2024-06-03] MEDS: OXYTOCIN PREMIX 30 UNIT/500 ML PLAST..BAG IV (11:22)
--- NOTE | 2024-06-03 15:55 | PM.AN.REGBLK ---
Regional Block Pre-procedure Procedure: Continuous Lumbar Epidural for L&D Attending OB provider: Cherie Khan PMH/ROS narrative: 39 y/o here for IOL d/t AMA requesting JAYLIN for labor pain. PSH/Anesthesia history narrative: See pre-anesthesia eval. Exam narrative: See pre-anesthesia eval. ASA Class: II Labs: Hct 36.2 % (36-46) 06/02/24 18:00 Plt Count 190 X10^3/uL (150-400) 06/02/24 18:00 Medications: Current Medications Generic Name Dose Route Start Last Admin Trade Name Freq PRN Reason Stop Dose Admin Butorphanol Tartrate 0.5 mg 06/03/24 15:53 Butorphanol 1 Mg/Ml Vial IV 06/04/24 15:53 Q3HR PRN PRURITUS Calcium Carbonate 1,000 mg 06/02/24 17:39 Calcium Carbonate 500 Mg Tab PO Q2HR PRN Dyspepsia Carboprost Tromethamine 250 mcg 06/02/24 17:39 Carboprost 250 Mcg/Ml Ampul IM Q90M PRN Bleeding Diphenhydramine HCl 25 mg 06/03/24 15:53 Diphenhydramine 50 Mg/Ml Vial IV 06/04/24 15:53 Q3HR PRN PRURITUS Fentanyl 50 mcg 06/02/24 17:39 Fentanyl 100 Mcg/2 Ml Inj IV Q1H PRN Pain, Moderate (4-6) Tranexamic Acid 1,000 mg/ 100 mls @ 600 mls/hr 06/02/24 17:39 Sodium Chloride IV NOW PRN Bleeding Oxytocin/Lactated Ringer's 30 unit in 500 mls @ 200 mls/hr 06/02/24 17:39 Oxytocin Premix IV CONT PRN Bleeding Protocol Oxytocin/Lactated Ringer's 30 unit in 500 mls @ 3 mls/hr 06/03/24 11:10 06/03/24 11:22 Oxytocin Premix IV 2 milliunit/min TITRATE DARIUS 2 mls/hr Administration Protocol 3 MILLIUNIT/MIN Lidocaine HCl 20 ml 06/02/24 17:39 Lidocaine 1% 20 Ml INJ INTRA-OP PRN Post Delivery Methylergonovine Maleate 0.2 mg 06/02/24 17:39 Methylergonovine 0.2 Mg/Ml Vial IM NOW PRN Bleeding Methylergonovine Maleate 0.2 mg 06/02/24 17:39 Methylergonovine 0.2 Mg Tablet PO Q6HR PRN Heavy Bleeding Metoclopramide HCl 10 mg 06/03/24 15:53 Metoclopramide 10 Mg/2 Ml Inj IV 06/04/24 15:53 Q4H PRN Nausea Misoprostol 400 mcg 06/02/24 17:39 Misoprostol 200 Mcg Tablet SL NOW PRN Bleeding Misoprostol 800 mcg 06/02/24 17:39 Misoprostol 200 Mcg Tablet FL NOW PRN Bleeding Nalbuphine HCl 5 mg 06/03/24 15:53 Nalbuphine 20 Mg/Ml Ampul IV Q6H PRN Pruritus Naloxone HCl 0.2 mg 06/02/24 17:39 Naloxone 0.4 Mg/Ml Vial IV Q2MIN PRN Opiate Reversal Naloxone HCl 0.4 mg 06/03/24 15:53 Naloxone 0.4 Mg/Ml Vial IV Q2MIN PRN Opiate Reversal Ondansetron HCl 4 mg 06/02/24 17:39 Ondansetron 4 Mg/2 Ml Inj IV Q4HR PRN Nausea And Vomiting Ondansetron HCl 4 mg 06/03/24 17:00 Ondansetron 4 Mg/2 Ml Inj IV 06/03/24 21:01 Q4HR DARIUS Oxytocin 10 unit 06/02/24 17:39 Oxytocin 10 Unit/Ml Vial IM NOW PRN Bleeding Allergies: Allergies Allergy/AdvReac Type Severity Reaction Status Date / Time No Known Drug Allergies Allergy Verified 06/02/24 20:03 Procedure Insertion date: 06/03/24 Insertion time: 15:38 Prep/Local: 1% lidocaine (CHG to back for skin prep, 5mL 1% lido for skin prep.) Interspace: L2/3 Patient position: sitting Needle: 18 gauge Rebatead Loss of resistance with: saline DAREN at (cm): 7 Catheter placed at SKIN (cm): 12 Catheter in SPACE (cm): 5 Insertion: No CSF, No Blood, No Paresthesia with insertion, No Paresthesia with injection and No Test dose reaction Initial Medications TEST DOSE time: 15:39 TEST DOSE: 1.5% lidocaine with epinephrine 1:200k (mL): 3 BOLUS DOSE time: 15:45 BOLUS DOSE (mL): 10 BOLUS DOSE med: other (infusate) Infusion INFUSION: 0.125% bupivacaine and with fentanyl 2 mcg/mL Initial rate (mL/hr): 10 Post-procedure Anesthesia date START: 06/03/24 Anesthesia time START: 15:29 Anesthesia date END: 06/03/24 Anesthesia time END: 23:13 Post-procedure Anesthesia Assessment: Yes CV function: HR/BP stable, Yes Resp function: RR/sat/airway adequate, Yes Post-op hydration adequate, Yes Pain control adequate, Yes Nausea & vomiting absent, Yes Temperature > 36 C, Yes Mental status appropriate and No Anesthesia complications
[2024-06-03] MEDS: ONDANSETRON 4 MG/2 ML INJ IV ×2 (16:42→20:50)
[2024-06-03] MEDS: ePHEDrine 50 MG/ML VIAL 10 MG IV (16:45)
--- NOTE | 2024-06-03 16:53 | PM.OBPNLAB ---
Date/Time Date Patient Seen: 06/03/24 Time Patient Seen: 16:53 Pain Control Pain control: epidural Pelvic Exam Dilation (cm): 5 Effacement (%): 50 station: -1 Amniotic membrane status: Ruptured (Clear) Contractions Monitor mode: External Contraction frequency (min): 3 Contraction duration (min): 1 Contraction pattern: Regular Contraction intensity: Strong/Firm Status status: Category ll Heart Rate Baseline: 150 Monitor Decelerations: Prolonged Monitor Variability: Minimal Comments: After epidural bolus the patient had a emesis and did not feel well although blood pressure not significantly low. The fetus had a deceleration from 150s to 100s. Also in the process of having position change for vaginal exam. Patient was AROM for clear fluid followed by a deceleration to the 60s for 2 minutes then increased to 170s with decreased variability. Pitocin was turned off, IV fluid bolus begun, will monitor for well-being. Discussed briefly a section with the patient. Assessment and Plan Assessment: induction ongoing
[2024-06-03] MEDS: CALCIUM CARBONATE 500 MG TAB 1000 MG PO (18:52)
[2024-06-03] MEDS: FENT 2MCG/ML BUPIV 0.125% EPI 200 MCG/100 ML PLAST..BAG 10 MCG EPIDURAL (19:58)
--- NOTE | 2024-06-03 23:46 | PM.OBPRVD ---
Events: Labor Augmentation (Advanced maternal age) Labor & Delivery Delivery date: 06/03/24 Delivery Time: 23:13 Cervical ripening method: per misoprostal protocol (Followed by Abrams bulb) Induction method: per pitocin protocol Delivery augmentation: rupture of membranes (Clear fluid) Delivery monitor: external FHT and external uterine Route of delivery: Episiotomy description: None L&D Laceration Description: Vaginal - 1st Degree Delivery repair: chromic (3-0) Estimated blood loss (mL): 100 Anesthesia Type: Epidural Narrative: Patient arrived on Labor and delivery on 06/02/24 for induction at 39 weeks for advanced maternal age. She received Cytotec orally. She then had a Abrams bulb placed that expelled spontaneously into the vagina. Pitocin was begun. She received an epidural catheter for pain control. She had AROM for clear fluid. Shortly after the epidural the patient began having some deep variable decelerations. Pitocin stopped, IV fluid bolus and position change decrease the frequency. The fetus periodically had periods of time of decreased variability but then reactive strip. Wet and the patient became complete the variables increased with baseline of the heart rate increasing from 150s to 170. Position changes and fluid bolus with the patient making good progress so continued with pushing. The fetus delivered spontaneously, over an intact perineum. A tight nuchal cord was released and the viable female was placed on the maternal abdomen. After the cord stopped pulsating the cord was clamped, cut, and cord bloods obtained. The placenta delivered spontaneously, intact, with 3 vessels. IV Pitocin was begun after the cord was clamped. The cervix and vagina were examined. There was a first-degree posterior midline vaginal tear with no vulvar tears. The midline tear was repaired with 3 0 chromic suture. Estimated blood loss 100 cc. Both infant and mother doing well. Routine care [place] Baby 1: gender: Female Presentation: vertex Position: Right Occiput Anterior Placenta delivery description: Spontaneous Cord Vessel Description: 3 Vessels and Nuchal Cord (Tight x1) score (1 min): 8 score (5 min): 9 Plan for aftercare: Routine care
[2024-06-04] MEDS: ACETAMINOPHEN 325 MG TABLET 650 MG PO ×4 (00:36→20:17)
[2024-06-04] MEDS: IBUPROFEN 600 MG TABLET PO ×4 (00:37→20:19)
[2024-06-04] MEDS: WITCH HAZEL/GLYCERIN PADS 1 EACH TOP ×2 (00:38→20:17)
[2024-06-04] MEDS: DERMOPLAST SPRAY 20% 60 ML 1 SPRAY TOP (00:38)
[2024-06-04 05:59] LABS: Add Manual Diff / Slide Review NO; Basophils Absolute Auto 0 /uL (0-100); Basophils Percent Auto 0.3 % (0-2); Eosinophils Absolute Auto 0 /uL (0-450); Eosinophils Percent Auto 0.1 % (2-4); Hematocrit 35.2 % (36-46); Hemoglobin 12.2 g/dL (12.0-16.0); Lymphocytes Absolute Auto 1400 /uL (1100-4500); Lymphocytes Percent Auto 10.1 % (25-40); Mean Corpuscular HGB Conc 34.6 % (30-36); Mean Corpuscular Hemoglobin 31.7 PG (26-34); Mean Corpuscular Volume 91.7 fL (80-100); Monocytes Absolute Auto 1100 /uL (0-900); Monocytes Percent Auto 7.9 % (3-14); Neutrophils Absolute Auto 11500 /uL (1500-7000); Neutrophils Percent Auto 81.6 % (50-75); Platelet Count 167 X10^3/uL (150-400); Red Blood Cell Count 3.84 X10^6/uL (4.0-5.2); Red Cell Distribution Width 13.5 % (11.6-14.8); White Blood Cell Count 14.2 X10^3/uL (4.5-11.0)
[2024-06-04] MEDS: LANOLIN OINT 7 GM 1 APPLIC TOP (10:10)
[2024-06-04] MEDS: PRENATAL VIT,CALC/IRON/FOLIC 1 TABLET 1 TAB PO (10:11)
[2024-06-04] MEDS: DOCUSATE 100 MG CAPSULE PO (10:11)
[2024-06-05] MEDS: IBUPROFEN 600 MG TABLET PO ×2 (03:50→10:45)
[2024-06-05] MEDS: ACETAMINOPHEN 325 MG TABLET 650 MG PO ×2 (03:51→10:48)
--- NOTE | 2024-06-05 07:40 | P.DS_ITS ---
Discharge Providers Provider Date of admission: 06/02/24 17:30 Discharge Date: 06/05/24 Primary care physician: Eddy Guthrie MD Consults: 06/02/24 17:39 Consult to Anesthesiology Urgent Comment: Consulting Provider: Anesthesiologist Reason for consultation: Epidural 06/04/24 23:39 Consult to Button Pusher Routine Comment: Discharge provider: Cherie Khan MD Summary Hospital Course Date Patient Seen: 06/05/24 Time Patient Seen: 07:40 Diagnoses: 39 week gestation advanced maternal age , spontaneous vaginal delivery Hospital Course: Patient arrived on Labor and delivery on 06/02/2024 for induction at 39 and half weeks for advanced maternal age. She received prostaglandins, Abrams bulb, epidural catheter, Pitocin augmentation of labor. Patient had a spontaneous vaginal delivery. She is breast-feeding without difficulty. Urinating and ambulating well. Patient denies headaches, scotomata, epigastric. Peripartum Data Infant Delivery Method: Natural Vaginal Laceration Description: Vaginal - 1st Degree complications: none [place] 1: Gender: Female Disposition of : home Discharge Diagnosis (1) Vaginal delivery: Status: Acute Status at Discharge Cognitive/behavioral status at discharge: oriented Functional status at discharge: independent ambulation Overall status at discharge: patient is progressing back to baseline Time Spent with Patient Time attestation: Total time spent providing and/or coordinating discharge services: Time spent: Less than 30 minutes Objective Labs 06/04/24 05:44 Exam Vital Signs (past 8 hours): Blood pressure 105/66, pulse 74, temperature 98.7? Narrative Exam Narrative: Abdomen is soft, nontender. Uterus is firm, U -1, nontender. Mild lochia. Extremities with minimal edema and nontender. Discharge Plan Discharge Plan Patient Disposition: Home Discharge orders & Medications Prescriptions: Continued pantoprazole 40 mg tablet,delayed release (DR/EC) 40 mg PO DAILY Qty: 90 1RF bupropion HCl 300 mg tablet extended release 24 hr 300 mg PO QAM Qty: 90 0RF ascorbate calcium (vitamin C) 500 mg tablet 500 mg PO DAILY calcium carbonate [Calcium 500] 500 mg calcium (1,250 mg) tablet,chewable 500 mg PO DAILY vitamin B complex Capsule 1 cap PO DAILY DHA 200 mg capsule PO fenofibric acid (choline) 45 mg capsule,delayed release(DR/EC) 45 mg PO DAILY [facility] Bariatric PNV PO Follow up/Referrals: Katyaluba Diaz [Other] (Saturday 06/10-Please arrive by 11:00am ) Nereida Robledo MD [Physician] - 6 Weeks () Eddy Guthrie MD [Primary Care Provider] - Diet/Activity/Treatments Diet: Regular Activity: nothing in vagina for 6 weeks Skin/Wound/Dressing Care Report to your healthcare provider any signs of infection, such as:: chills, fever and increased pain Visit Report/Discharge Packet Stand Alone Forms: Patient Portal/API, Stroke Signs & Symptoms Discharge Data Primary Care Provider: Eddy Guthrie
[2024-06-05] MEDS: PRENATAL VIT,CALC/IRON/FOLIC 1 TABLET 1 TAB PO (08:17)
[2024-06-05] MEDS: buPROPion XL 150 MG TAB 300 MG PO (08:17)
[2024-06-05] MEDS: DOCUSATE 100 MG CAPSULE PO (08:17)
== END 2024-06-05 13:25 | disposition home or self-care (01) | DRG 807 ==
PROVIDERS: Admitting Provider Specialist; PCP Family Medicine; Referring Provider Specialist; Visit Provider Specialist
DX: O76 Abnormality in fetal heart rate and rhythm complicating labor and delivery (principal); Z37.0 Single live birth; Z3A.39 39 weeks gestation of pregnancy; O70.0 First degree perineal laceration during delivery
CPT/HCPCS: 36415; 59050; 59200; 59400; 59409; 85025; 86850; 86900; 86901; G0379; J2405; J2590

== ENCOUNTER → 2024-09-04 17:18 | Outpatient (CLI) | payer OTHER, SELFPAY ==
--- NOTE | 2024-09-04 17:20 | DI.MRI.S_ITS ---
PROCEDURE: MR HAND RT WO/W CON INDICATIONS: growth on right thumb TECHNIQUE: Noncontrast coronal T1 spin echo and STIR, sagittal T1 spin echo with fat saturation and STIR, axial T1 spin echo and T2 fast spin echo with fat saturation. After the administration of contrast, axial/sagittal/coronal T1 spin echo with fat saturation through the right hand. COMPARISON: [facility], CR, XR HAND RT MIN 3V, 08/30/2024, 10:05. FINDINGS: Image quality: Excellent. Bones: Mild degenerative change of the 1st metacarpal phalangeal joint. Mild degenerative changes of 1st carpal metacarpal joint. No acute fracture. Soft tissues: There is a 7 mm ganglion cyst (06:37) ulnar to the 1st proximal phalangeal base. The flexor, and extensor tendons unremarkable. Muscles are normal in signal. IMPRESSION: 1. 7 mm ganglion cyst ulnar to the 1st proximal phalangeal base. 2. Mild degenerative changes. Dictated by: Mary Anne Minaya M.D. on 09/05/2024 at 14:01 Approved by: Mary Anne Minaya M.D. on 09/05/2024 at 14:08
== END ==
LOC: MRI 17:19
PROVIDERS: PCP Family Medicine; Referring Provider Physician Assistant Surgical; Visit Provider Physician Assistant Surgical
DX: M67.441 Ganglion, right hand (principal); M79.641 Pain in right hand
CPT/HCPCS: 73220; A9579